=== PATIENT | male | born 1975 | race Caucasian/White ===

== ENCOUNTER 2017-12-03 21:05 | Emergency (ER) | payer MEDICAID ==
[~2017-12-03] VITALS: Ht 185.4 cm; Wt 86.2 kg
[2017-12-03 21:10] VITALS: BP_SYST 134
[2017-12-03] MEDS ORDERED: NACL 0.9% 1,000 ML IV ONE (21:29)
[2017-12-03] MEDS ORDERED: PANTOPRAZOLE SODIUM 40 MG/VIAL (PROTONIX) IVP ONE (21:30)
[2017-12-03 22:21] LABS: BASOPHILS % (AUTO) 0.6 % (0.0-2.0); EOSINOPHILS # (AUTO) 0.1 K/uL (0.0-0.4); EOSINOPHILS % (AUTO) 1.6 % (0.0-4.0); HEMATOCRIT 44.9 % (36-54); HEMOGLOBIN 14.5 g/dL (14.0-18.0); LYMPHOCYTES # (AUTO) 1.6 K/uL (1.0-5.5); LYMPHOCYTES % (AUTO) 20.6 % (20.5-51.5); MEAN CORPUSCULAR HEMOGLOBIN 29 pg (27-31); MEAN CORPUSCULAR HGB CONC 32 % (32-36); MEAN CORPUSCULAR VOLUME 89 fL (79.0-98.0); MONOCYTES # (AUTO) 0.5 K/uL (0.0-1.0); MONOCYTES % (AUTO) 6.3 % (1.7-9.3); NEUTROPHILS # (AUTO) 5.8 K/uL (1.8-7.7); NEUTROPHILS % (AUTO) 70.9 % (40.0-70.0); PLATELET COUNT (AUTO) 357 K/uL (130-430); RED BLOOD CELL COUNT(AUTO) 5.04 MIL/uL (4.2-6.2); RED CELL DISTRIBUTION WIDTH 12.4 % (9.0-15.0)
[2017-12-03 22:26] LABS: CALCIUM 8.8 mg/dL (8.4-11.0); CREATININE 0.92 mg/dL (0.55-1.30); POTASSIUM 3.9 mmol/L (3.5-5.1)
[2017-12-03 22:31] LABS: ALBUMIN 3.5 g/dL (3.4-4.8); TOTAL BILIRUBIN 0.2 mg/dL (0.0-1.0)
[2017-12-03 22:51] LABS: INR 1.1 (0.80-1.20)
[2017-12-03 23:43] LABS: BILIRUBIN,URINE NEGATIVE (NEGATIVE); BLOOD, URINE NEGATIVE (NEGATIVE); CLARITY/URINE CLEAR (CLEAR); COLOR,URINE YELLOW (YELLOW); GLUCOSE,URINE NEGATIVE (NEGATIVE); KETONES,URINE NEGATIVE (NEGATIVE); LEUKOCYTE ESTERASE ,URINE NEGATIVE (NEGATIVE); NITRITE, URINE NEGATIVE (NEGATIVE); PROTEIN URINE NEGATIVE (NEGATIVE); UROBILINOGEN,URINE 0.2 (0.2-1.0)
[2017-12-04] VITALS: BP_SYST 130
== END 2017-12-04 | disposition home or self-care (01) ==
LOC: SED 21:05
DX: A08.4 Viral intestinal infection, unspecified (principal); F17.200 Nicotine dependence, unspecified, uncomplicated
CPT/HCPCS: 36415; 71045; 80053; 81003; 82272; 83605; 83690; 85025; 85610; 85730; 87040; 87086; 87230; 89055; 93005; 96361; 96374; 99285; C9113; J7030

== ENCOUNTER 2019-01-16 14:01 | Emergency (ER) | payer MEDICAID ==
[~2019-01-16] VITALS: Ht 185.4 cm; Wt 104.3 kg
[2019-01-16 14:01] VITALS: BP_SYST 115
--- NOTE | 2019-01-16 14:02 | NUR ---
Patient triaged and placed in waiting room. VSS and patient appears in no acute distress at this time. Accompanied by SELF, awaiting available bed, and MD notified of need for MSE.
--- NOTE | 2019-01-16 15:07 | NUR ---
BROUGHT BACK TO [facility], REPORT GIVEN TO GUS
--- NOTE | 2019-01-16 15:10 | NUR ---
Pt brought by self,A&Ox4, pt presens to ER with sore throat,cough and congestion , skin pink and warm, cap refill <3, respirations even and unlabored, pt afebrile, ambulatory.
--- NOTE | 2019-01-16 15:13 | NUR ---
DR TINEO AT BEDSIDE FOR EVALUATION
[2019-01-16 15:45] VITALS: BP_SYST 117
--- NOTE | 2019-01-16 15:46 | NUR ---
DPatient given written and verbal discharge instructions and verbalizes understanding. ER MD discussed with patient the results and treatment provided. Patient in stable condition. ID arm band removed. Rx of CHLORESEPTIC, CODEINE-PHOSPHATE/GUAIFENESIN, ZITHROMAX given. Patient educated on pain management and to follow up with PMD. Pain Scale 0/10. Opportunity for questions provided and answered. Medication side effect fact sheet provided.
== END 2019-01-16 15:45 | disposition home or self-care (01) ==
LOC: SED 14:01
DX: J06.9 Acute upper respiratory infection, unspecified (principal); J02.9 Acute pharyngitis, unspecified; R05 Cough; F17.200 Nicotine dependence, unspecified, uncomplicated
CPT/HCPCS: 36415; 71045; 86403; 87081; 99284

== ENCOUNTER 2019-01-18 17:00 | Emergency (ER) | payer MEDICAID ==
[~2019-01-18] VITALS: Ht 185.4 cm; Wt 104.3 kg
[2019-01-18 17:07] VITALS: BP_SYST 148
--- NOTE | 2019-01-18 17:07 | NUR ---
Patient to ER bed 2 to gown for evaluation. Side rails up. Report given to Elver TREVIZO.
[2019-01-18] MEDS ORDERED: IPRATROPIUM/ALBUTEROL SULFATE 3 ML AMPUL.NEB (DUONEB) INH ONE (17:15)
--- NOTE | 2019-01-18 17:15 | NUR ---
Pt c/o s/s worsen since ED visit yesterday.Pt c/o cough x 2 weeks.Pt denies med hx. Pt also reports unable to fill RX given yesterday.
--- NOTE | 2019-01-18 17:15 | NUR ---
ER at bedside examining patient.
[2019-01-18 17:55] VITALS: BP_SYST 115
--- NOTE | 2019-01-18 17:55 | NUR ---
Patient given written and verbal discharge instructions and verbalizes understanding. ER MD discussed with patient the results and treatment provided. Patient in stable condition. ID arm band removed. Rx of tessalon,zithromax,albuterol given. Patient educated on pain management and to follow up with PMD. Pain Scale 2. Opportunity for questions provided and answered. Medication side effect fact sheet provided.
== END 2019-01-18 17:55 | disposition home or self-care (01) ==
LOC: SED 17:00
DX: J20.9 Acute bronchitis, unspecified (principal); R50.9 Fever, unspecified; R03.0 Elevated blood-pressure reading, without diagnosis of hypertension
CPT/HCPCS: 71045; 94640; 99283; J7620

== ENCOUNTER 2019-03-18 01:04 | Emergency (ER) | payer MEDICAID ==
[~2019-03-18] VITALS: Ht 185.4 cm; Wt 104.3 kg
[2019-03-18 01:10] VITALS: BP_SYST 137
== END 2019-03-18 02:01 | disposition left against medical advice (07) ==
LOC: SED 01:04
DX: S60.562A Insect bite (nonvenomous) of left hand, initial encounter (principal); S60.561A Insect bite (nonvenomous) of right hand, initial encounter; Z53.21 Procedure and treatment not carried out due to patient leaving prior to being seen by health care provider; W57.XXXA Bitten or stung by nonvenomous insect and other nonvenomous arthropods, initial encounter; Y93.89 Activity, other specified; Y92.89 Other specified places as the place of occurrence of the external cause; Y99.8 Other external cause status

== ENCOUNTER 2021-01-18 10:03 | Emergency (ER) | payer MEDICAID ==
[~2021-01-18] VITALS: Ht 182.9 cm; Wt 104.3 kg
[2021-01-18 10:15] VITALS: BP_SYST 120
[2021-01-18] MEDS ORDERED: NAPR-1172 PO ×3 (10:28→10:33)
[2021-01-18] MEDS ORDERED: CEPH500C2 PO ×3 (10:28→10:33)
[2021-01-18] MEDS ORDERED: KETOROLAC TROMETHAMINE 30 MG VIAL IM ONE (10:30)
[2021-01-18 11:00] VITALS: BP_SYST 120
== END 2021-01-18 10:45 | disposition home or self-care (01) ==
LOC: SED 10:03
DX: T14.8XXA Other injury of unspecified body region, initial encounter (principal); R21 Rash and other nonspecific skin eruption; W57.XXXA Bitten or stung by nonvenomous insect and other nonvenomous arthropods, initial encounter; Y93.89 Activity, other specified; Y92.89 Other specified places as the place of occurrence of the external cause; Y99.8 Other external cause status
CPT/HCPCS: 96372; 99283; J1885

== ENCOUNTER 2021-12-28 23:26 | Emergency (ER) | payer MEDICAID ==
[~2021-12-28] VITALS: Ht 182.9 cm; Wt 95.3 kg
[~2021-12-28 23:26] MED LIST: CEPH-548 PO; NAPR-1172 PO
[2021-12-28 23:30] VITALS: BP_SYST 135
== END 2021-12-29 00:10 | disposition left against medical advice (07) ==
LOC: SED 23:26
DX: R06.02 Shortness of breath (principal); Z53.21 Procedure and treatment not carried out due to patient leaving prior to being seen by health care provider

== ENCOUNTER 2024-04-10 19:29 | Emergency (ER) | payer MEDICAID ==
[~2024-04-10] VITALS: Ht 182.9 cm; Wt 99.8 kg
[2024-04-10 19:36] VITALS: BP_SYST 120; PULSE 108; RESP 20; TEMP 98.9; O2SAT 96
[2024-04-10] MEDS ORDERED: NS 1000 ML IV.SOLN IV ONE (20:00)
== END 2024-04-10 20:17 | disposition left against medical advice (07) ==
LOC: SED 19:29
DX: L02.413 Cutaneous abscess of right upper limb (principal); Z79.899 Other long term (current) drug therapy; Z79.2 Long term (current) use of antibiotics
CPT/HCPCS: 99281